=== PATIENT | male | born 1960 | race Caucasian/White ===

== ENCOUNTER 2017-12-02 14:44 | Observation (INO) ==
[2017-12-02] MEDS ORDERED: MYLANTA/LIDO VISC 2:1 300 ML BOTTLE SWISH/SWAL PRN (16:32)
[2017-12-02] MEDS ORDERED: guaiFENesin 200 MG/10 ML UDCUP PO PRN (16:32)
[2017-12-02] MEDS ORDERED: traMADol 50 MG TABLET PO PRN (16:32)
[2017-12-02] MEDS ORDERED: LACTULOSE 20 GM/30 ML UDCUP PO PRN (16:32)
[2017-12-02] MEDS ORDERED: MYLANTA/LIDO VISC 2:1 300 ML BOTTLE SWISH/SPIT PRN (16:32)
[2017-12-02] MEDS ORDERED: BENZTROPINE 2 MG/2 ML AMP IV PRN (16:32)
[2017-12-02] MEDS ORDERED: diphenhydrAMINE CAP 25 MG CAPSULE PO PRN (16:32)
[2017-12-02] MEDS ORDERED: PROMETHAZINE INJ 25 MG in SODIUM CHLORIDE 0.9% 50 ML IV PRN (16:32)
[2017-12-02] MEDS ORDERED: LOPERAMIDE 2 MG CAPSULE PO PRN ×2 (16:32)
[2017-12-02] MEDS ORDERED: chlorproMAZINE INJ 25 MG in SODIUM CHLORIDE 0.9% 100 ML IV PRN (16:32)
[2017-12-02] MEDS ORDERED: ACETAMINOPHEN 325 MG TABLET PO PRN (16:32)
[2017-12-02] MEDS ORDERED: ALUMINUM/MAGNES/SIMETH MAX STR 30 ML UDCUP PO PRN (16:32)
[2017-12-02] MEDS ORDERED: chlorproMAZINE INJ 50 MG in SODIUM CHLORIDE 0.9% 100 ML IV PRN (16:32)
[2017-12-02] MEDS ORDERED: ONDANSETRON 4 MG/2 ML VIAL IV PRN (16:32)
[2017-12-02] MEDS ORDERED: chlorproMAZINE 25 MG TABLET PO PRN (16:32)
[2017-12-02] MEDS ORDERED: TEMAZEPAM 7.5 MG CAPSULE PO PRN (16:32)
[2017-12-02] MEDS ORDERED: MAGNESIUM HYDROXIDE SUSP 30 ML UDCUP PO PRN (16:32)
[2017-12-02] MEDS ORDERED: ALPRAZolam 0.25 MG TABLET PO PRN (16:32)
[2017-12-02] MEDS ORDERED: MORPHINE 4 MG/1 ML VIAL IV PRN (16:38)
[2017-12-02] MEDS ORDERED: SODIUM CHLORIDE 0.9% 500 ML IV ONE (16:48)
[2017-12-02] MEDS: PANTOPRAZOLE 40 MG VIAL IV SCH (17:06)
[2017-12-02] MEDS: SODIUM CHLORIDE 0.9% 1,000 ML IV SCH (17:46)
[2017-12-03] MEDS: SODIUM CHLORIDE 0.9% 1,000 ML IV SCH (01:49)
[2017-12-03 05:16] LABS: Basophils # 0.1 10*3/uL (0.0-0.2); Basophils % 0.4 % (0.0-0.8); Eosinophils # 0.1 10*3/uL (0.0-0.87); Eosinophils % 0.5 % (0.00-10.9); Hematocrit 37.5 VOL% (42.0-52.0); Hemoglobin 12.7 GM/DL (14.0-18.0); Immature Granulocytes % 0.8 %; Immature Granulocytes Absolute 0.13 #; Lymphocytes # 1.4 10*3/uL (1.4-4.0); Lymphocytes % 8.3 % (21.2-54.2); Mean Corpuscular HGB Conc 33.9 GM/DL (32-36); Mean Corpuscular Hemoglobin 29 PG (27-34); Mean Corpuscular Volume 84.5 FL (87-102); Mean Platelet Volume 9.7 FL (9.6-12.0); Monocytes # 1.4 10*3/uL (0.11-0.8); Monocytes % 8.6 % (1.7-12.7); Neutrophils # 13.5 10*3/uL (1.4-7.4); Neutrophils % 81.4 % (38.7-73.9); Platelet Count 484 T/CUMM (130-400); Red Blood Count 4.44 MC/CUMM (3.8-5.5); Red Cell Distribution Width 12.1 % (9.3-17.3); White Blood Count 16.6 T/CUMM (4-12)
[2017-12-03 05:53] LABS: Albumin 1.8 G/DL (3.4-5.0); Bilirubin,Total 1.3 MG/DL (0.2-1.0); Calcium 8.5 MG/DL (8.5-10.1); Osmolality,Calculated 263.5 MOS/KG (273-304); Potassium 3.8 MMOL/L (3.5-5.1); Total Protein 7.5 G/DL (6.4-8.3)
[2017-12-03] MEDS: PANTOPRAZOLE 40 MG VIAL IV SCH (08:05)
[2017-12-03 08:12] VITALS: BP 133/82
== END 2017-12-03 09:53 | disposition home or self-care (01) ==
LOC: N.4E
PROVIDERS: ADMIT Internal Medicine Hematology & Oncology; ATTEND Internal Medicine Hematology & Oncology

== ENCOUNTER 2017-12-16 11:09 | Inpatient (IN) ==
[2017-12-16] MEDS ORDERED: MYLANTA/LIDO VISC 2:1 300 ML BOTTLE SWISH/SPIT PRN (12:40)
[2017-12-16] MEDS ORDERED: traMADol 50 MG TABLET PO PRN (12:40)
[2017-12-16] MEDS ORDERED: ONDANSETRON 4 MG/2 ML VIAL IV PRN (12:40)
[2017-12-16] MEDS ORDERED: LACTULOSE 20 GM/30 ML UDCUP PO PRN (12:40)
[2017-12-16] MEDS ORDERED: TEMAZEPAM 7.5 MG CAPSULE PO PRN (12:40)
[2017-12-16] MEDS ORDERED: ACETAMINOPHEN 325 MG TABLET PO PRN (12:40)
[2017-12-16] MEDS ORDERED: MAGNESIUM HYDROXIDE SUSP 30 ML UDCUP PO PRN (12:40)
[2017-12-16] MEDS ORDERED: chlorproMAZINE INJ 25 MG in SODIUM CHLORIDE 0.9% 100 ML IV PRN (12:40)
[2017-12-16] MEDS ORDERED: guaiFENesin 200 MG/10 ML UDCUP PO PRN (12:40)
[2017-12-16] MEDS ORDERED: LOPERAMIDE 2 MG CAPSULE PO PRN ×2 (12:40)
[2017-12-16] MEDS ORDERED: PROMETHAZINE INJ 25 MG in SODIUM CHLORIDE 0.9% 50 ML IV PRN (12:40)
[2017-12-16] MEDS ORDERED: ALUMINUM/MAGNES/SIMETH MAX STR 30 ML UDCUP PO PRN (12:40)
[2017-12-16] MEDS ORDERED: diphenhydrAMINE CAP 25 MG CAPSULE PO PRN (12:40)
[2017-12-16] MEDS ORDERED: chlorproMAZINE INJ 50 MG in SODIUM CHLORIDE 0.9% 100 ML IV PRN (12:40)
[2017-12-16] MEDS ORDERED: ALPRAZolam 0.25 MG TABLET PO PRN (12:40)
[2017-12-16] MEDS ORDERED: BENZTROPINE 2 MG/2 ML AMP IV PRN (12:40)
[2017-12-16] MEDS ORDERED: chlorproMAZINE 25 MG TABLET PO PRN (12:40)
[2017-12-16] MEDS ORDERED: MYLANTA/LIDO VISC 2:1 300 ML BOTTLE SWISH/SWAL PRN (12:40)
[2017-12-16] MEDS ORDERED: SODIUM CHLORIDE 0.9% 2,000 ML IV ONE (12:45)
[2017-12-16] MEDS ORDERED: KETOROLAC 30 MG/1 ML VIAL IV ONE (12:45)
[2017-12-16] MEDS: CEFEPIME 1,000 MG in SYRINGE 1 EACH IV SCH ×2 (14:10→21:03)
[2017-12-16] MEDS: MORPHINE ER 15 MG TABLET PO SCH ×2 (14:10→21:01)
[2017-12-16] MEDS ORDERED: GLUCAGON 1 MG VIAL IM PRN (15:07)
[2017-12-16] MEDS ORDERED: DEXTROSE 50% 25 GM/50 ML VIAL IV PRN (15:07)
[2017-12-16] MEDS: SODIUM CHLORIDE 0.9% 1,000 ML IV SCH ×2 (16:37→19:16)
[2017-12-16] MEDS ORDERED: MORPHINE 4 MG/1 ML VIAL IV PRN (17:00)
[2017-12-16 19:03] LABS: Apearance,Urine Slightly Hazy (Clear); Bacteria,Urine Occasional /HPF (Few); Bilirubin,Urine Negative (Negative); Blood, Urine Negative (Negative); Glucose,Urine (UA) Negative (Negative); Ketones,Urine 5 mg/dL (Negative); Mucus,Urine Occasional /LPF (Occasional); Nitrite,Urine Negative (Negative); Protein,Urine 30 MG/DL; RBC,Urine 6 /HPF (0-4); Squamous Epithelial Cell,Urine Occasional /HPF (0-10); Urine Color Amber (Yellow); Urine Specific Gravity 1.028 (1.001-1.035); WBC,Urine 54 /HPF (0-6)
[2017-12-16] MEDS: INSULIN REGULAR 100 UNIT/ML SUBCUT SCH (19:08)
[2017-12-17] MEDS: SODIUM CHLORIDE 0.9% 1,000 ML IV SCH ×3 (01:52→21:59)
[2017-12-17] MEDS: INSULIN REGULAR 100 UNIT/ML SUBCUT SCH ×4 (01:55→18:43)
[2017-12-17 06:12] LABS: Basophils # 0.1 10*3/uL (0.0-0.2); Basophils % 0.4 % (0.0-0.8); Eosinophils # 0.1 10*3/uL (0.0-0.87); Eosinophils % 0.5 % (0.00-10.9); Hematocrit 33.8 VOL% (42.0-52.0); Hemoglobin 11.4 GM/DL (14.0-18.0); Immature Granulocytes % 1.5 %; Lymphocytes # 1.4 10*3/uL (1.4-4.0); Mean Corpuscular HGB Conc 33.7 GM/DL (32-36); Mean Corpuscular Hemoglobin 29 PG (27-34); Mean Corpuscular Volume 85.6 FL (87-102); Mean Platelet Volume 10.2 FL (9.6-12.0); Monocytes # 2.4 10*3/uL (0.11-0.8); Monocytes % 8.8 % (1.7-12.7); Neutrophils # 22.9 10*3/uL (1.4-7.4); Neutrophils % 83.8 % (38.7-73.9); Platelet Count 571 T/CUMM (130-400); Red Blood Count 3.95 MC/CUMM (3.8-5.5); Red Cell Distribution Width 15.8 % (9.3-17.3); White Blood Count 27.3 T/CUMM (4-12)
[2017-12-17 06:41] LABS: Prealbumin 3.8 MG/DL (20-40)
[2017-12-17 06:41] LABS: Albumin 1.4 G/DL (3.4-5.0); Bilirubin,Total 2.5 MG/DL (0.2-1.0); Calcium 8.3 MG/DL (8.5-10.1); Osmolality,Calculated 270.2 MOS/KG (273-304); Potassium 3.6 MMOL/L (3.5-5.1); Total Protein 6.7 G/DL (6.4-8.3)
[2017-12-17] MEDS: CEFEPIME 1,000 MG in SYRINGE 1 EACH IV SCH ×3 (07:07→21:53)
[2017-12-17 07:38] LABS: Band Neutrophils 1 % (0-10); Eosinophils 2 % (0-10); Lymphocytes 5 % (20-55); Platelet Estimate Increased; Segmented Neutrophils 84 % (50-85); Total Cells Counted 100
[2017-12-17] MEDS: MORPHINE ER 15 MG TABLET PO SCH ×2 (12:05→21:03)
[2017-12-17] MEDS ORDERED: ZALEPLON 5 MG CAPSULE PO SCH (21:00)
[2017-12-18] MEDS: INSULIN REGULAR 100 UNIT/ML SUBCUT SCH ×2 (01:30→06:15)
[2017-12-18] MEDS: SODIUM CHLORIDE 0.9% 1,000 ML IV SCH (04:56)
[2017-12-18 05:37] LABS: Basophils # 0.1 10*3/uL (0.0-0.2); Basophils % 0.3 % (0.0-0.8); Eosinophils % 0.1 % (0.00-10.9); Hematocrit 34.1 VOL% (42.0-52.0); Hemoglobin 11.1 GM/DL (14.0-18.0); Immature Granulocytes % 1.9 %; Lymphocytes # 1.4 10*3/uL (1.4-4.0); Lymphocytes % 5.2 % (21.2-54.2); Mean Corpuscular HGB Conc 32.6 GM/DL (32-36); Mean Corpuscular Hemoglobin 28 PG (27-34); Mean Platelet Volume 9.9 FL (9.6-12.0); Monocytes # 2.1 10*3/uL (0.11-0.8); Monocytes % 8.1 % (1.7-12.7); Neutrophils # 22.2 10*3/uL (1.4-7.4); Neutrophils % 84.4 % (38.7-73.9); Platelet Count 570 T/CUMM (130-400); Red Blood Count 3.92 MC/CUMM (3.8-5.5); Red Cell Distribution Width 16.4 % (9.3-17.3); White Blood Count 26.3 T/CUMM (4-12)
[2017-12-18] MEDS: CEFEPIME 1,000 MG in SYRINGE 1 EACH IV SCH (05:57)
[2017-12-18 06:06] LABS: Hypochromasia 1+; Platelet Estimate Increased
[2017-12-18 06:10] LABS: Albumin 1.3 G/DL (3.4-5.0); Bilirubin,Total 2.7 MG/DL (0.2-1.0); Calcium 8.2 MG/DL (8.5-10.1); Potassium 3.5 MMOL/L (3.5-5.1); Total Protein 6.7 G/DL (6.4-8.3)
[2017-12-18 09:37] VITALS: BP 126/64
[2017-12-18] MEDS: MORPHINE ER 15 MG TABLET PO SCH (09:41)
== END 2017-12-18 15:02 | disposition hospice, home (50) | DRG 872 ==
LOC: N.4E 11:37
PROVIDERS: ADMIT Internal Medicine Hematology & Oncology; ATTEND Internal Medicine Hematology & Oncology